=== PATIENT | female | born 1955 | race Caucasian/White ===

== ENCOUNTER 2019-03-01 07:49 | Emergency (ER) | payer OTHER ==
[2019-03-01 07:57] VITALS: TEMP 97.8; BMI 37.5
[2019-03-01] MEDS ORDERED: ACETAMINOPHEN 500 MG TABLET (FP) PO ONE (08:28)
--- NOTE | 2019-03-01 08:38 | PDOC ---
History of Present Illness - General Chief Complaint: Blood Pressure Problem Stated Complaint: POSSIBLE HIGH BLOOD SUGAR AND BLOOD PRESSURE Time Seen by Provider: 03/01/19 08:15 History Source: Patient Exam Limitations: No Limitations - History of Present Illness Initial Comments: 03/01/19 08:33 63-year-old female with history of Hypertension and diabetes presents to ED with complaints of increased urination mild frontal headache and nausea which began yesterday. Patient states has been out of her antihypertensive medication and diabetic medication for the past 4 days and does not return back to [place] until next week. Patient requesting refill for medication. Patient denies visual changes, dizziness, chest pain, shortness of breath and abdominal pain. Timing/Duration: constant Severity: mild Associated Symptoms: reports: headaches (frontal) Past History - Travel Traveled outside of the country in the last 30 days: No Close contact w/someone who was outside of country & ill: No - Past Medical History Allergies/Adverse Reactions: Allergies Allergy/AdvReac Type Severity Reaction Status Date / Time iodine Allergy Verified 03/01/19 07:58 latex Allergy Verified 03/01/19 07:58 Penicillins Allergy Verified 03/01/19 07:58 Home Medications: Ambulatory Orders Amlodipine Besylate 5 mg PO DAILY 03/01/19 Amlodipine Besylate [Norvasc -] 5 mg PO DAILY #30 tablet 03/01/19 Atenolol [Tenormin -] 50 mg PO DAILY 03/01/19 Atenolol [Tenormin -] 50 mg PO DAILY #30 tablet 03/01/19 Lansoprazole 15 mg PO DAILY 03/01/19 Lansoprazole 15 mg PO DAILY #30 tab 03/01/19 Metformin HCl [Glucophage] 1,000 mg PO BID 03/01/19 Metformin HCl [Glucophage] 1,000 mg PO BID #60 tablet 03/01/19 Asthma: Yes COPD: No Diabetes: Yes HTN: Yes Psychiatric Problems: Yes (depression) - Suicide/Smoking/Psychosocial Hx Smoking History: Never smoked Information on smoking cessation initiated: No Hx Alcohol Use: No Drug/Substance Use Hx: No Patient Lives Alone: No Lives with/in: spouse/SO Review of Systems - Review of Systems Able to Perform ROS?: Yes Constitutional: No: Symptoms Reported HEENTM: No: Symptoms Reported Respiratory: No: Symptoms reported Cardiac (ROS): Yes: Lightheadedness ABD/GI: Yes: Nausea : Yes: Frequency Musculoskeletal: No: Symptoms Reported Integumentary: No: Symptoms Reported Neurological: Yes: Headache Hematologic/Lymphatic: No: Symptoms Reported *Physical Exam - Vital Signs Last Vital Signs Temp Pulse Resp BP Pulse Ox 97.8 F 69 17 146/76 99 03/01/19 07:54 03/01/19 07:54 03/01/19 07:54 03/01/19 07:54 03/01/19 08:18 - Physical Exam General Appearance: Yes: Nourished, Appropriately Dressed. No: Apparent Distress HEENT: positive: [place]. negative: Pale Conjunctivae Neck: positive: Normal Thyroid Respiratory/Chest: positive: Lungs Clear, Normal Breath Sounds. negative: Respiratory Distress, Accessory Muscle Use Cardiovascular: positive: Regular Rhythm, Regular Rate. negative: Murmur Gastrointestinal/Abdominal: positive: Soft Extremity: positive: Normal Inspection. negative: Pedal Edema Integumentary: positive: Normal Color, Warm, Moist Neurologic: positive: Motor Strength 5/5 (ambulatory) ED Treatment Course - LABORATORY CBC & Chemistry Diagram: 03/01/19 08:35 03/01/19 08:29 Medical Decision Making - Medical Decision Making 03/01/19 08:39 CC: Patient here requesting refill for her antihypertensive medication and diabetic medication. Patient also complaining of mild frontal headache along with nausea and mild urinary frequency since yesterday. Patient here on vacation Exam: No acute findings. Vital signs stable Plan: Labs, urine and Tylenol ordered 03/01/19 09:36 Laboratory Tests 03/01/19 03/01/19 03/01/19 08:29 08:35 08:35 WBC 8.8 Hgb 14.0 Hct 42.1 Neutrophils % 54.7 Sodium 136 Potassium 4.1 Chloride 99 Carbon Dioxide 30 Anion Gap 7 L BUN 23.6 H Creatinine 0.9 Random Glucose 224 H AST 30 ALT 47 Albumin 4.0 Urine Ketones Negative Urine Nitrite Negative Ur Leukocyte Esterase Negative Acetone, Qual Pending Pt states feeling better after tylenol. rx sent to pharmacy. Laboratory Tests 03/01/19 08:29 Acetone, Qual Negative L *DC/Admit/Observation/Transfer Diagnosis at time of Disposition: Hypertension - Discharge Dispostion Disposition: HOME - Prescriptions Prescriptions: Amlodipine Besylate [Norvasc -] 5 mg PO DAILY #30 tablet Atenolol [Tenormin -] 50 mg PO DAILY #30 tablet Lansoprazole 15 mg PO DAILY #30 tab.rap. Metformin HCl [Glucophage] 1,000 mg PO BID #60 tablet - Referrals Referrals: ON STAFF,NOT [Primary Care Provider] - - Patient Instructions - Post Discharge Activity
[2019-03-01 08:51] LABS: EOS % 2.7 % (0-4.5); HEMATOCRIT 42.1 % (32.4-45.2); LYMPH % 31.2 % (8-40); MCH 28.8 pg (25.7-33.7); MCHC 33.2 g/dl (32.0-36.0); MEAN CELL VOLUME 86.7 fl (80-96); MEAN PLT VOLUME 8.7 fl (7.5-11.1); MONO % 9.4 % (3.8-10.2); NEUT % 54.7 % (42.8-82.8); PLATELET COUNT 273 K/MM3 (134-434); RBC 4.85 M/mm3 (3.60-5.2); RDW 14.3 % (11.6-15.6); WHITE BLOOD COUNT 8.8 K/mm3 (4.0-10.0)
[2019-03-01] MEDS ORDERED: ACETAMINOPHEN 325 MG TABLET (FP) ONE (08:56)
[2019-03-01 08:57] LABS: URINE APPEARANCE CLEAR; URINE BILIRUBIN NEGATIVE (NEGATIVE); URINE COLOR YELLOW; URINE GLUCOSE (UA) NEGATIVE (NEGATIVE); URINE KETONE NEGATIVE (NEGATIVE); URINE LEUK ESTERASE NEGATIVE (NEGATIVE); URINE NITRITE NEGATIVE (NEGATIVE); URINE PROTEIN NEGATIVE (NEGATIVE); URINE UROBILINOGEN 0.2 mg/dL (0.2-1.0)
[2019-03-01 09:20] LABS: ALK PHOS 92 U/L (45-117); ANION GAP 7 MMOL/L (8-16); BILIRUBIN,TOTAL 0.4 mg/dL (0.2-1); BLOOD UREA NITROGEN 23.6 mg/dL (7-18); CALCIUM 9.5 mg/dL (8.5-10.1); CHLORIDE 99 mmol/L (98-107); CO2 30 mmol/L (21-32); CREATININE 0.9 mg/dL (0.55-1.3); GLUCOSE,RANDOM 224 mg/dL (74-106); POTASSIUM 4.1 mmol/L (3.5-5.1); SGOT/AST 30 U/L (15-37); SGPT/ALT 47 U/L (13-61); SODIUM 136 mmol/L (136-145); TOT PROT 7.9 g/dl (6.4-8.2)
[2019-03-01 09:30] VITALS: BP 145/85; PULSE 63
[2019-03-01 09:56] LABS: ANISOCYTOSIS 0; MACROCYTOSIS 0; PLATELET ESTIMATE NORMAL
[2019-03-01 11:50] LABS: ACETONE SERUM NEGATIVE (NEGATIVE)
== END 2019-03-01 10:12 | disposition home or self-care (01) ==
LOC: JER 07:49
DX: I10 Essential (primary) hypertension (principal); E11.9 Type 2 diabetes mellitus without complications; Z79.84 Long term (current) use of oral hypoglycemic drugs; Z76.0 Encounter for issue of repeat prescription
CPT/HCPCS: 36415; 80053; 81003; 82009; 85025; 87086; 99283-25

== ENCOUNTER 2022-06-30 12:53 | Emergency (ER) | payer OTHER ==
[2022-06-30 13:09] VITALS: BP 135/88; PULSE 95; RESP 18; TEMP 98.3; BMI 36.7
[2022-06-30] MEDS ORDERED: ACETAMINOPHEN 500 MG TABLET (FP) PO ONE (15:33)
[2022-06-30] MEDS ORDERED: METHOCARBAMOL 500 MG TABLET PO ONE (15:33)
[2022-06-30] MEDS ORDERED: METHOCARBAMOL 500 MG TABLET ONE (15:35)
[2022-06-30] MEDS ORDERED: ACETAMINOPHEN 500 MG TABLET (FP) ONE (15:35)
== END 2022-06-30 15:41 | disposition home or self-care (01) ==
LOC: JERFT 12:53 → JER 12:53 → JERFT 15:41
DX: S20.212A Contusion of left front wall of thorax, initial encounter (principal); M25.551 Pain in right hip; W22.8XXA Striking against or struck by other objects, initial encounter
CPT/HCPCS: 71046-TC-FY; 71101-TC-LT-FY; 73521-TC-FY; 99285-25

== ENCOUNTER 2023-12-05 14:11 | Emergency (ER) | payer OTHER ==
[2023-12-05 14:21] VITALS: RESP 17; TEMP 98.4; BMI 32.3
[2023-12-05] MEDS ORDERED: FAMOTIDINE 20 MG/50 ML IVPB 20 MG/50 ML MG IVPB ONE (16:14)
[2023-12-05] MEDS ORDERED: ACETAMINOPHEN INJECTION 100 ML IVPB ONE (16:14)
[2023-12-05] MEDS ORDERED: MAG HYDROX/AL HYDROX/SIMETH 30 ML UNIT-DOSE CUP ONE (16:14)
[2023-12-05] MEDS: LACTATED RINGERS SOLUTION 1000 ML INFUS.BAG IV ONE (16:21)
[2023-12-05] MEDS: FAMOTIDINE 20 MG/50 ML IVPB 20 MG/50 ML MG IVPB ONE (16:21)
[2023-12-05] MEDS: ACETAMINOPHEN 1000 MG/100 ML BAG IVPB ONE (16:21)
[2023-12-05] MEDS: MAG HYDROX/AL HYDROX/SIMETH 30 ML UNIT-DOSE CUP PO ONE (16:21)
[2023-12-05 16:24] LABS: BASO % 0.5 % (0-2.0); EOS % 5.2 % (0-4.5); HEMATOCRIT 38.9 % (32.4-45.2); HEMOGLOBIN 12.9 GM/dL (10.7-15.3); MCH 29.1 pg (25.7-33.7); MCHC 33.2 g/dl (32.0-36.0); MEAN CELL VOLUME 87.7 fl (80-96); MONO % 10.7 % (3.8-10.2); NEUT % 49.6 % (42.8-82.8); PLATELET COUNT 309 10^3/uL (134-434); RBC 4.43 M/mm3 (3.60-5.2); RDW 15.2 % (11.6-15.6); WHITE BLOOD COUNT 9.3 K/mm3 (4.0-10.0)
[2023-12-05 16:39] LABS: POTASSIUM 5.7 mmol/L (3.5-5.1)
[2023-12-05 16:41] LABS: ALBUMIN 3.8 g/dl (3.4-5.0); BLOOD UREA NITROGEN 30.2 mg/dL (7-18); CALCIUM 9.8 mg/dL (8.5-10.1)
[2023-12-05 16:46] LABS: BILIRUBIN,TOTAL 0.6 mg/dL (0.2-1); TOT PROT 7.4 g/dl (6.4-8.2)
[2023-12-05 18:22] VITALS: BP 157/65; PULSE 80
== END 2023-12-05 18:21 | disposition home or self-care (01) ==
LOC: JER 14:11
PROC: 3E033GC Introduction of Other Therapeutic Substance into Peripheral Vein, Percutaneous Approach (ICD-10-PCS; principal; 2023-12-05)
PROC: 3E030NZ Introduction of Analgesics, Hypnotics, Sedatives into Peripheral Vein, Open Approach (ICD-10-PCS; 2023-12-05)
DX: R11.2 Nausea with vomiting, unspecified (principal); R10.13 Epigastric pain; R07.2 Precordial pain
CPT/HCPCS: 36415; 71045-TC-FY; 80053; 83690; 84484; 85025; 93005; 93010; 96365; 96375; 99285-25; J0131